=== PATIENT | male | born 1960 | race Caucasian/White ===

== ENCOUNTER 2016-09-13 17:15 | Emergency (ER) | payer BC, OTHER ==
[~2016-09-13] VITALS: Ht 182.9 cm; Wt 96.3 kg
[~2016-09-13 17:15] MED LIST: BENZ100C84; CHERATUSSIN AC
[2016-09-13 17:28] VITALS: TEMP 37.2; Ht 182.9 cm; Wt 96.3 kg
[2016-09-13] MEDS ORDERED: ACET-1256 PO (17:35)
[2016-09-13] MEDS ORDERED: ONDANSETRON INJ 2 MG/ML 2 ML VIAL IV STA (17:49)
[2016-09-13] MEDS ORDERED: KETOROLAC TROMETHAMINE 30 MG/ML VIAL IV STA (17:49)
[2016-09-13] MEDS ORDERED: SODIUM CHLORIDE 0.9% 1000ML 1,000 ML IV STA (17:49)
[2016-09-13] MEDS ORDERED: MoRPHine SULFATE 4 MG/ML 1 ML CARP\\VIAL IV PRN (18:00)
[2016-09-13 18:04] LABS: BASO % 0.1 %; BASO ABS # 0.02 K/uL (0-0.2); COMPLETE YES; EOS % 0.2 %; HEMATOCRIT 45.9 % (42-52); IG% 0.4 %; LYMPH % 6.9 %; LYMPH ABS # 1.09 K/uL (1.2-3.4); MEAN CELL VOLUME 92.4 fL (80-100); MEAN CORPUSCULAR HEMOGLOBIN 32.6 pg (25-34); MEAN CORPUSCULAR HGB CONC 35.3 g/dl (32-36); MEAN PLATELET VOLUME 9.3 fL (7.4-10.4); MONO % 5.5 %; NEUT % 86.9 %; PLATELET COUNT 261 K/uL (130-400); RED BLOOD COUNT 4.97 M/uL (4.7-6.1)
[2016-09-13 18:12] LABS: BUN/CREATININE RATIO 17.1 (10-20); CALCIUM 9.2 mg/dl (8.5-10.1); CREATININE 1.3 mg/dl (0.60-1.40); POTASSIUM 4.4 mmol/L (3.5-5.1)
[2016-09-13 18:24] LABS: URINE APPEARANCE CLEAR (CLEAR); URINE BILIRUBIN NEG (NEG); URINE COLOR YELLOW; URINE EPITHELIAL CELL AUTO 0-5 /lpf (0-5); URINE NITRITE NEG (NEG); UROBILINOGEN NEG (NEG); ZZUR CULT IF INDIC CLEAN CATCH NO
[2016-09-13 18:26] LABS: MANUAL MICROSCOPIC REQUIRED? NO; REVIEW REQ? NO
--- NOTE | 2016-09-13 18:29 | DIAGNOSTIC IMAGING REPORT ---
CT SCAN OF THE ABDOMEN AND PELVIS WITHOUT IV CONTRAST CLINICAL HISTORY: Right flank pain. COMPARISON STUDY: No priors. TECHNIQUE: CT scan of the abdomen and pelvis is performed from the lung bases to the proximal femora. Images are reviewed in the axial, sagittal, and coronal planes. IV contrast was not administered for this examination as per the referring clinician. Automated dose control exposure was utilized. CT DOSE: 1441.38 mGy.cm FINDINGS: Lung bases: The heart is normal in size and without pericardial effusion. The lung bases are clear. There is a tiny hiatal hernia. Liver: The unenhanced liver is normal in size, contour, and attenuation. There is no intrahepatic biliary ductal dilatation. Gallbladder: Unremarkable. Spleen: Normal in size and attenuation. Pancreas: Unremarkable. Adrenal glands: Unremarkable. Kidneys: The unenhanced kidneys are normal in size. There is a 6 mm obstructing calculus at the right ureteropelvic junction, best seen on axial image #196. This is located at the level of L3 and causes moderate right-sided hydronephrosis. There is associated right-sided perinephric stranding and fluid. No additional stones are identified in the right kidney. There are no left-sided renal calculi and there is no left-sided hydronephrosis. A 1.3 cm hyperdense lesion in the interpolar left kidney seen on image #150 is typical appearance for a hemorrhagic cyst. Small parapelvic cysts are noted on the left. Abdominal vasculature: The abdominal aorta is normal in course and caliber. Bowel: The small bowel and colon are normal in course and caliber. There is mild colonic diverticulosis without CT evidence of acute diverticulitis. The appendix is well-visualized and normal. Peritoneum: There is no intraperitoneal free air or abdominal ascites. Lymphadenopathy: None. Pelvic viscera: The bladder, prostate, and seminal vesicles are normal as imaged. Skeletal structures: No lytic or blastic lesions are seen. There is mild lumbosacral spondylosis. Degenerative change is also seen in the sacroiliac joints. IMPRESSION: 1. There is a 6 mm obstructing calculus at the right ureteropelvic junction which causes moderate right-sided hydronephrosis. 2. No additional calculi are identified in either kidney. 3. Mild colonic diverticulosis without CT evidence of acute diverticulitis. 4. Additional findings as above. Electronically signed by: Otf Ramirez M.D. 09/13/2016 6:28 PM Dictated Date/Time: 09/13/2016 6:22 PM
[2016-09-13] MEDS ORDERED: TAMS0.4C38 PO (19:25)
[2016-09-13] MEDS ORDERED: ONDA4TAB10 SL (19:25)
[2016-09-13] MEDS ORDERED: OXYC-57 PO (19:25)
--- NOTE | 2016-09-13 19:29 | EMERGENCY ROOM VISIT NOTE ---
History Report prepared by Betsy: Mary Trinidad Under the Supervision of: Dr. Jerardo Levy D.O. First contact with patient: 17:47 Chief Complaint: FLANK PAIN Stated Complaint: RIGHT SIDE PAIN History of Present Illness The patient is a 55 year old male who presents to the Emergency Room with complaints of persistent right sided abdominal pain that began around 1200 today. He currently rates his discomfort as a 8/10 in severity. The patient states that while at work today he thought he pulled a muscle when he developed his pain. He states that he tried Tylenol and heating pads without relief of his symptoms. The patient states that his pain never subsided so he came for further evaluation. He associates nausea and vomiting with his symptoms today. The patient states that his pain radiates to his right flank and down his right groin. He notes a history of kidney stones, stating that his pain today feels similar. The patient denies any history of abdominal surgeries. Source of History: patient Onset: 1200 today Position: abdomen (right) Symptom Intensity: 8/10 Timing: other (persistent) Associated Symptoms: + back pain, + nausea, + vomiting Note: Associated Symptoms: right groin pain Review of Systems See HPI for pertinent positives & negatives. A total of 10 systems reviewed and were otherwise negative. Past Medical & Surgical Medical Problems: (1) Kidney stones Family History Cancer Social History Smoking Status: Never Smoker Alcohol Use: occasionally Marital Status: Housing Status: lives with family Occupation Status: employed Current/Historical Medications Scheduled Ondasetron Odt (Zofran Odt), 4 MG SL Q6H Tamsulosin Hcl (Flomax), 0.4 MG PO HS Scheduled PRN Acetaminophen (Tylenol), 1,000 MG PO DIRECTED PRN for Pain Oxycodone/Acetaminophen 5MG/325MG (Percocet 5MG/325MG), 1 TAB PO Q6H PRN for Pain Allergies Coded Allergies: No Known Allergies (Unverified , 09/13/16) Physical Exam Vital Signs Date Time Temp Pulse Resp B/P Pulse Ox O2 Delivery O2 Flow Rate FiO2 09/13/16 19:52 70 18 166/70 98 09/13/16 19:08 74 20 162/104 96 Room Air 09/13/16 17:28 37.2 80 18 180/132 97 Room Air Physical Exam CONSTITUTIONAL/VITAL SIGNS: Reviewed / noted above. GENERAL: Non-toxic in appearance. INTEGUMENTARY: Warm, dry, and [place]. HEAD: Normocephalic. EYES: without scleral icterus or trauma. ENT/OROPHARYNX: clear and moist. LYMPHADENOPATHY/NECK: Is supple without lymphadenopathy or meningismus. RESPIRATORY: Lungs clear and equal. CARDIOVASCULAR: Regular rate and rhythm. GI/ABDOMEN: Soft and mild right lower quadrant abdominal tenderness. No organomegaly or pulsatile mass. No rebound or guarding. Normal bowel sounds. EXTREMITIES: Warm and well perfused. BACK: Mild right CVA tenderness. NEUROLOGICAL: Intact without focal deficits. PSYCHIATRIC: normal affect. MUSCULOSKELETAL: Normally developed with good muscle tone. Medical Decision & Procedures ER Provider Diagnostic Interpretation: CT results as stated below per my review and radiologist interpretation: CT SCAN OF THE ABDOMEN AND PELVIS WITHOUT IV CONTRAST CLINICAL HISTORY: Right flank pain. COMPARISON STUDY: No priors. TECHNIQUE: CT scan of the abdomen and pelvis is performed from the lung bases to the proximal femora. Images are reviewed in the axial, sagittal, and coronal planes. IV contrast was not administered for this examination as per the referring clinician. Automated dose control exposure was utilized. CT DOSE: 1441.38 mGy.cm FINDINGS: Lung bases: The heart is normal in size and without pericardial effusion. The lung bases are clear. There is a tiny hiatal hernia. Liver: The unenhanced liver is normal in size, contour, and attenuation. There is no intrahepatic biliary ductal dilatation. Gallbladder: Unremarkable. Spleen: Normal in size and attenuation. Pancreas: Unremarkable. Adrenal glands: Unremarkable. Kidneys: The unenhanced kidneys are normal in size. There is a 6 mm obstructing calculus at the right ureteropelvic junction, best seen on axial image #196. This is located at the level of L3 and causes moderate right-sided hydronephrosis. There is associated right-sided perinephric stranding and fluid. No additional stones are identified in the right kidney. There are no left-sided renal calculi and there is no left-sided hydronephrosis. A 1.3 cm hyperdense lesion in the interpolar left kidney seen on image #150 is typical appearance for a hemorrhagic cyst. Small parapelvic cysts are noted on the left. Abdominal vasculature: The abdominal aorta is normal in course and caliber. Bowel: The small bowel and colon are normal in course and caliber. There is mild colonic diverticulosis without CT evidence of acute diverticulitis. The appendix is well-visualized and normal. Peritoneum: There is no intraperitoneal free air or abdominal ascites. Lymphadenopathy: None. Pelvic viscera: The bladder, prostate, and seminal vesicles are normal as imaged. Skeletal structures: No lytic or blastic lesions are seen. There is mild lumbosacral spondylosis. Degenerative change is also seen in the sacroiliac joints. IMPRESSION: 1. There is a 6 mm obstructing calculus at the right ureteropelvic junction which causes moderate right-sided hydronephrosis. 2. No additional calculi are identified in either kidney. 3. Mild colonic diverticulosis without CT evidence of acute diverticulitis. 4. Additional findings as above. Electronically signed by: Otf Ramirez M.D. 09/13/2016 6:28 PM Dictated Date/Time: 09/13/2016 6:22 PM Laboratory Results 09/13/16 17:40 Red Blood Count 4.97, Mean Corpuscular Volume 92.4, Mean Corpuscular Hemoglobin 32.6, Mean Corpuscular Hemoglobin Concent 35.3, Mean Platelet Volume 9.3, Neutrophils (%) (Auto) 86.9, Lymphocytes (%) (Auto) 6.9, Monocytes (%) (Auto) 5.5, Eosinophils (%) (Auto) 0.2, Basophils (%) (Auto) 0.1, Neutrophils # (Auto) 13.63, Lymphocytes # (Auto) 1.09, Monocytes # (Auto) 0.87, Eosinophils # (Auto) 0.03, Basophils # (Auto) 0.02 09/13/16 17:40 Test 09/13/16 17:40 09/13/16 18:05 White Blood Count 15.70 K/uL (4.8-10.8) Red Blood Count 4.97 M/uL (4.7-6.1) Hemoglobin 16.2 g/dL (14.0-18.0) Hematocrit 45.9 % (42-52) Mean Corpuscular Volume 92.4 fL (80-100) Mean Corpuscular Hemoglobin 32.6 pg (25-34) Mean Corpuscular Hemoglobin Concent 35.3 g/dl (32-36) Platelet Count 261 K/uL (130-400) Mean Platelet Volume 9.3 fL (7.4-10.4) Neutrophils (%) (Auto) 86.9 % Lymphocytes (%) (Auto) 6.9 % Monocytes (%) (Auto) 5.5 % Eosinophils (%) (Auto) 0.2 % Basophils (%) (Auto) 0.1 % Neutrophils # (Auto) 13.63 K/uL (1.4-6.5) Lymphocytes # (Auto) 1.09 K/uL (1.2-3.4) Monocytes # (Auto) 0.87 K/uL (0.11-0.59) Eosinophils # (Auto) 0.03 K/uL (0-0.5) Basophils # (Auto) 0.02 K/uL (0-0.2) RDW Standard Deviation 42.2 fL (36.4-46.3) RDW Coefficient of Variation 12.5 % (11.5-14.5) Immature Granulocyte % (Auto) 0.4 % Immature Granulocyte # (Auto) 0.06 K/uL (0.00-0.02) Anion Gap 7.0 mmol/L (3-11) Est Creatinine Clear Calc Drug Dose 77.3 ml/min Estimated GFR () 71.2 Estimated GFR (Non- 61.4 BUN/Creatinine Ratio 17.1 (10-20) Calcium Level 9.2 mg/dl (8.5-10.1) Total Bilirubin 0.8 mg/dl (0.2-1) Direct Bilirubin 0.2 mg/dl (0-0.2) Aspartate Amino Transf (AST/SGOT) 22 U/L (15-37) Alanine Aminotransferase (ALT/SGPT) 37 U/L (12-78) Alkaline Phosphatase 70 U/L (45-117) Total Protein 7.6 gm/dl (6.4-8.2) Albumin 4.4 gm/dl (3.4-5.0) Lipase 111 U/L (73-393) Urine Color YELLOW Urine Appearance CLEAR (CLEAR) Urine pH 5.0 (4.5-7.5) Urine Specific [place] 1.020 (1.000-1.030) Urine Protein NEG (NEG) Urine Glucose (UA) NEG (NEG) Urine Ketones NEG (NEG) Urine Occult Blood 3+ (NEG) Urine Nitrite NEG (NEG) Urine Bilirubin NEG (NEG) Urine Urobilinogen NEG (NEG) Urine Leukocyte Esterase NEG (NEG) Urine WBC (Auto) 1-5 /hpf (0-5) Urine RBC (Auto) >30 /hpf (0-4) Urine Hyaline Casts (Auto) 0 /lpf (0-5) Urine Epithelial Cells (Auto) 0-5 /lpf (0-5) Urine Bacteria (Auto) NEG (NEG) Laboratory results as stated above per my review. Medications Administered Medications (Trade) Dose Ordered Sig/Magan Route Start Time Stop Time Status Last Admin Dose Admin Sodium Chloride (Nss 1000ml) 1,000 ml @ 999 mls/hr Q1H1M STAT IV 09/13/16 17:49 09/13/16 18:49 DC 09/13/16 17:58 999 MLS/HR Ondansetron HCl (Zofran Inj) 4 mg NOW STAT IV 09/13/16 17:49 09/13/16 17:50 DC 09/13/16 17:58 4 MG Ketorolac Tromethamine (Toradol Inj) 30 mg NOW STAT IV 09/13/16 17:49 09/13/16 17:50 DC 09/13/16 17:59 30 MG Morphine Sulfate (MoRPHine SULFATE INJ) 4 mg Q15M PRN IV 09/13/16 18:00 09/27/16 17:59 09/13/16 17:59 4 MG Oxycodone/ Acetaminophen (Percocet 5/ 325MG Home Pack) 1 homepack UD ONCE PO 09/13/16 19:30 09/13/16 19:31 DC 09/13/16 19:48 1 HOMEPACK Ondansetron HCl (ZOFRAN ODT 4MG Home Pack) 1 homepack UD ONCE PO 09/13/16 19:30 09/13/16 19:31 DC 09/13/16 19:48 1 HOMEPACK ED Course 1747: Previous medical records were reviewed. The patient was evaluated in room C6. A complete history and physical examination was performed. 1748: Ordered Toradol Inj 30 mg IV, Zofran Inj 4 mg IV, Sodium Chloride 1000 ml @ 999 mls/hr IV. 1800: Ordered Morphine Sulfate 4 mg IV. 1929: Ordered Ondansetron HCl 1 homepack PO, Oxycodone/Acetaminophen 1 homepack PO. 1931: I reevaluated the patient and he is resting comfortably. I discussed the exam findings with him and I discussed the treatment plan. He verbalized complete understanding and agreement. He is ready to go home. Medical Decision Differential considered: pancreatitis, hepatitis, or acute cholecystitis, AAA, UTI, pyelonephritis, kidney stones, appendicitis, diverticulitis, shingles, bowel obstruction mesenteric ischemia, intussusception,hernia, testicular torsion. This is a 55-year-old male who presents to the ED with a chief complaint of right sided abdominal and flank pain. The patient states that his symptoms started around noon. A CT scan of the abdomen and pelvis reveals a 6 mm right UPJ stone with moderate [place]. Urine reveals 3+ blood. White blood cell count was 15.7. BUN is 22 and creatinine is normal. The patient was treated with IV fluids as well as IV Zofran and IV pain medication (morphine). His symptoms were controlled. He was given Flomax by mouth. He was discharged with a strainer. He was told to follow-up with urology. Impression Primary Impression: Kidney stone Additional Impression: Renal colic on right side Scribe Attestation The scribe's documentation has been prepared under my direction and personally reviewed by me in its entirety. I confirm that the note above accurately reflects all work, treatment, procedures, and medical decision making performed by me. Departure Information Prescriptions Ondasetron Odt (ZOFRAN ODT) 4 Mg Tab 4 MG SL Q6H for Nausea, #10 TAB Prov: Jerardo Levy D.O. 09/13/16 Oxycodone/Acetaminophen 5MG/325MG (PERCOCET 5MG/325MG) Tab 1 TAB PO Q6H Y for Pain, #30 TAB Prov: Jerardo Levy D.O. 09/13/16 Tamsulosin Hcl (FLOMAX) 0.4 Mg Cap 0.4 MG PO HS for 10 Days, #10 CAP Prov: Jerardo Levy D.O. 09/13/16 Referrals No Doctor, Assigned (PCP) Erik Pineda M.D. Forms HOME CARE DOCUMENTATION FORM, IMPORTANT VISIT INFORMATION Patient Instructions Kidney Stone Urine, Kidney Stones Expectant Therapy, My [facility] Additional Instructions Strain urine for stone. Percocet as prescribed. No driving within 6 hours of use. Do not take additional Tylenol while taking Percocet. Zofran: Allow one tablet to dissolve under the tongue every 6 hours as needed for nausea or vomiting. Flomax as prescribed. Follow-up with urology. Call tomorrow for an appointment. Return for fevers, vomiting or worsening symptoms. Problem Qualifiers
[2016-09-13] MEDS ORDERED: ONDANSETRON HOME PACK 4MG OD TAB PO ONE (19:30)
[2016-09-13] MEDS ORDERED: PERCOCET HOME PACK PO ONE (19:30)
[2016-09-13 19:52] VITALS: BP 166/70; PULSE 70; O2SAT 98
== END 2016-09-13 19:53 | disposition home or self-care (01) ==
LOC: C.EDB 17:16 → C.EDC 19:53
DX: N20.0 Calculus of kidney (principal); N23 Unspecified renal colic; N13.2 Hydronephrosis with renal and ureteral calculous obstruction

== ENCOUNTER 2016-09-15 11:16 | Emergency (ER) | payer OTHER ==
[~2016-09-15] VITALS: Ht 182.9 cm; Wt 103.0 kg
[~2016-09-15 11:16] MED LIST changes: +ACET-1256 PO; -BENZ100C84; -CHERATUSSIN AC; +ONDA4TAB10 SL; +OXYC-57 PO; +TAMS0.4C38 PO
[2016-09-15 11:32] VITALS: Ht 182.9 cm; Wt 103.0 kg
[2016-09-15] MEDS ORDERED: MoRPHine SULFATE 4 MG/ML 1 ML CARP\\VIAL IV STA ×2 (11:34→12:47)
[2016-09-15] MEDS ORDERED: SODIUM CHLORIDE 0.9% 1000ML 1,000 ML IV STA (11:34)
[2016-09-15 11:56] LABS: BASO % 0.1 %; BASO ABS # 0.01 K/uL (0-0.2); COMPLETE YES; EOS % 0.2 %; HEMATOCRIT 42.7 % (42-52); IG% 0.4 %; LYMPH % 8.4 %; LYMPH ABS # 1.41 K/uL (1.2-3.4); MEAN CELL VOLUME 93.8 fL (80-100); MEAN CORPUSCULAR HEMOGLOBIN 32.3 pg (25-34); MEAN CORPUSCULAR HGB CONC 34.4 g/dl (32-36); MEAN PLATELET VOLUME 9.5 fL (7.4-10.4); MONO % 7.1 %; NEUT % 83.8 %; PLATELET COUNT 212 K/uL (130-400); RED BLOOD COUNT 4.55 M/uL (4.7-6.1); WHITE BLOOD COUNT 16.88 K/uL (4.8-10.8)
[2016-09-15 12:01] LABS: URINE APPEARANCE CLEAR (CLEAR); URINE BILIRUBIN NEG (NEG); URINE COLOR YELLOW; URINE EPITHELIAL CELL AUTO 0-5 /lpf (0-5); URINE NITRITE NEG (NEG); URINE SPECIFIC GRAVITY 1.011 (1.000-1.030); UROBILINOGEN NEG (NEG); ZZUR CULT IF INDIC CLEAN CATCH NO
[2016-09-15 12:06] LABS: ALB/GLOB RATIO 1.3 (0.9-2); BUN/CREATININE RATIO 9.7 (10-20); CREATININE 1.5 mg/dl (0.60-1.40); POTASSIUM 4.2 mmol/L (3.5-5.1)
[2016-09-15 12:07] LABS: MANUAL MICROSCOPIC REQUIRED? NO; REVIEW REQ? NO
--- NOTE | 2016-09-15 12:13 | EMERGENCY ROOM VISIT NOTE ---
History First contact with patient: 11:24 Chief Complaint: FLANK PAIN Stated Complaint: PAIN ON RIGHT SIDE History of Present Illness The patient is a 55 year old male who presents to the Emergency Room with complaints of persistent right flank pain. The patient was seen here 2 days ago and diagnosed with a right-sided kidney stone. He reports that his pain was well controlled at home until yesterday evening. He states that since then , he has been taking his oxycodone as prescribed but has persistent 8/10 right flank pain with radiation into the right groin. He has not had nausea/vomiting or urinary symptoms. The patient does report that he felt feverish last night, but did not take his temperature. The patient has a history of kidney stones. He states that they have passed on their own in the past and he has not had to see a urologist. Review of Systems A complete 10-point Review of Systems was discussed with the patient, with pertinent positives and negatives listed in the History of Present Illness. All remaining Review of Systems questions can be considered negative unless otherwise specified. Past Medical/Surgical History Medical Problems: (1) Kidney stones Family History Cancer Social History Smoking Status: Never Smoker Alcohol Use: occasionally Marital Status: Housing Status: lives with family Occupation Status: employed Current/Historical Medications No Active Prescriptions or Reported Meds Allergies Coded Allergies: No Known Allergies (Unverified , 09/13/16) Physical Exam Vital Signs Date Time Temp Pulse Resp B/P Pulse Ox O2 Delivery O2 Flow Rate FiO2 09/15/16 14:34 98 16 161/102 96 09/15/16 12:46 76 16 159/98 97 Room Air 09/15/16 11:32 36.8 80 16 168/107 98 Room Air Physical Exam VITALS: Vitals are noted on the nurse's note and reviewed by myself. Vital signs stable. GENERAL: This is a 55-year-old male, in no acute distress, nondiaphoretic, well- developed well-nourished. SKIN: Capillary reflex less than 2 seconds. HEENT: Normocephalic. PERRLA. EOMI. Nares patent. Mucous membranes moist. Neck is supple without nuchal rigidity. HEART: Regular rate and rhythm without murmurs gallops or rubs. LUNGS: Clear to auscultation bilaterally without wheezes, rales or rhonchi. ABDOMEN: Positive bowel sounds x 4. Soft, mild tenderness over the right lower quadrant. No guarding or rebound tenderness. MUSCULOSKELETAL: Right CVA tenderness. NEURO: Patient was alert and oriented to person place and time. 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 No significant ureteral or paraspinal calcifications. Several pelvic vascular calcifications. IMPRESSION: No evidence for a urinary tract calcification within limitations of overlying bowel content Laboratory Results 09/15/16 11:30 Red Blood Count 4.55, Mean Corpuscular Volume 93.8, Mean Corpuscular Hemoglobin 32.3, Mean Corpuscular Hemoglobin Concent 34.4, Mean Platelet Volume 9.5, Neutrophils (%) (Auto) 83.8, Lymphocytes (%) (Auto) 8.4, Monocytes (%) (Auto) 7.1, Eosinophils (%) (Auto) 0.2, Basophils (%) (Auto) 0.1, Neutrophils # (Auto) 14.16, Lymphocytes # (Auto) 1.41, Monocytes # (Auto) 1.20, Eosinophils # (Auto) 0.04, Basophils # (Auto) 0.01 09/15/16 11:30 Test 09/15/16 11:30 White Blood Count 16.88 K/uL (4.8-10.8) Red Blood Count 4.55 M/uL (4.7-6.1) Hemoglobin 14.7 g/dL (14.0-18.0) Hematocrit 42.7 % (42-52) Mean Corpuscular Volume 93.8 fL (80-100) Mean Corpuscular Hemoglobin 32.3 pg (25-34) Mean Corpuscular Hemoglobin Concent 34.4 g/dl (32-36) Platelet Count 212 K/uL (130-400) Mean Platelet Volume 9.5 fL (7.4-10.4) Neutrophils (%) (Auto) 83.8 % Lymphocytes (%) (Auto) 8.4 % Monocytes (%) (Auto) 7.1 % Eosinophils (%) (Auto) 0.2 % Basophils (%) (Auto) 0.1 % Neutrophils # (Auto) 14.16 K/uL (1.4-6.5) Lymphocytes # (Auto) 1.41 K/uL (1.2-3.4) Monocytes # (Auto) 1.20 K/uL (0.11-0.59) Eosinophils # (Auto) 0.04 K/uL (0-0.5) Basophils # (Auto) 0.01 K/uL (0-0.2) RDW Standard Deviation 42.6 fL (36.4-46.3) RDW Coefficient of Variation 12.5 % (11.5-14.5) Immature Granulocyte % (Auto) 0.4 % Immature Granulocyte # (Auto) 0.06 K/uL (0.00-0.02) Urine Color YELLOW Urine Appearance CLEAR (CLEAR) Urine pH 5.0 (4.5-7.5) Urine Specific [place] 1.011 (1.000-1.030) Urine Protein NEG (NEG) Urine Glucose (UA) NEG (NEG) Urine Ketones TRACE (NEG) Urine Occult Blood 2+ (NEG) Urine Nitrite NEG (NEG) Urine Bilirubin NEG (NEG) Urine Urobilinogen NEG (NEG) Urine Leukocyte Esterase NEG (NEG) Urine WBC (Auto) 1-5 /hpf (0-5) Urine RBC (Auto) 5-10 /hpf (0-4) Urine Hyaline Casts (Auto) 0 /lpf (0-5) Urine Epithelial Cells (Auto) 0-5 /lpf (0-5) Urine Bacteria (Auto) NEG (NEG) Anion Gap 6.0 mmol/L (3-11) Est Creatinine Clear Calc Drug Dose 69.1 ml/min Estimated GFR () 59.9 Estimated GFR (Non- 51.7 BUN/Creatinine Ratio 9.7 (10-20) Calcium Level 9.0 mg/dl (8.5-10.1) Total Bilirubin 1.5 mg/dl (0.2-1) Aspartate Amino Transf (AST/SGOT) 12 U/L (15-37) Alanine Aminotransferase (ALT/SGPT) 27 U/L (12-78) Alkaline Phosphatase 66 U/L (45-117) Total Protein 7.2 gm/dl (6.4-8.2) Albumin 4.0 gm/dl (3.4-5.0) Globulin 3.2 gm/dl (2.5-4.0) Albumin/Globulin Ratio 1.3 (0.9-2) Medications Administered Medications (Trade) Dose Ordered Sig/Magan Route Start Time Stop Time Status Last Admin Dose Admin Sodium Chloride (Nss 1000ml) 1,000 ml @ 999 mls/hr Q1H1M STAT IV 09/15/16 11:34 09/15/16 12:34 DC 09/15/16 11:38 999 MLS/HR Morphine Sulfate (MoRPHine SULFATE INJ) 4 mg NOW STAT IV 09/15/16 11:34 09/15/16 11:35 DC 09/15/16 11:42 4 MG Morphine Sulfate (MoRPHine SULFATE INJ) 4 mg NOW STAT IV 09/15/16 12:47 09/15/16 12:48 DC 09/15/16 12:54 4 MG Hydromorphone HCl (Dilaudid Inj) 0.5 mg NOW STAT IV 09/15/16 14:07 09/15/16 14:13 DC 09/15/16 14:19 0.5 MG Medical Decision Differential diagnosis includes renal calculus, infected stone, among others. The patient was evaluated as above. Labs were drawn and IV access was obtained. Imaging studies were performed and read by radiology as above. The patient was medicated with 4 mg morphine IV and 1 L normal saline solution. The patient did require an additional 4 mg morphine. The patient was reassessed multiple times during their stay in the emergency department and remained in stable condition. The patient is a 55-year-old male who presents today complaining of continued pain after being diagnosed with a right-sided kidney stone. Review of the patient's records shows that he had a CT scan showing a 6 mm stone at the right UPJ 2 days ago. Labs revealed a leukocytosis of 16.8, increased slightly since his visit 2 days ago. Creatinine is slightly elevated at 1.50. This has also increased from his previous visit, when it was 1.30. The patient is afebrile and there are no other signs of infection. Urinalysis showed blood and trace ketones, but no evidence of infection. KUB was performed and was not able to identify the stone. The patient has not been able to manage his pain well at home. For this reason, he will be admitted for evaluation. I initially spoke with the [facility] hospitalist, who recommended that I speak with urology to admit the patient. I spoke with Dr. Rebollar of [facility] urology, who stated he would consult on the patient, but the patient should be admitted through medicine. I again spoke with the [facility] hospitalist, Dr. Ward , who agreed to evaluate the patient for admission. Impression Primary Impression: Right ureteral calculus Departure Information Prescriptions No Active Prescriptions or Reported Meds Referrals No Doctor, Assigned (PCP) Patient Instructions My [facility]
--- NOTE | 2016-09-15 12:45 | DIAGNOSTIC IMAGING REPORT ---
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 No significant ureteral or paraspinal calcifications. Several pelvic vascular calcifications. IMPRESSION: No evidence for a urinary tract calcification within limitations of overlying bowel content Electronically signed by: Yobani Avila M.D. 09/15/2016 12:44 PM Dictated Date/Time: 09/15/2016 12:43 PM
[2016-09-15] MEDS ORDERED: HYDROmorphone INJ 0.5 MG/0.5 ML SYR IV STA (14:07)
--- NOTE | 2016-09-15 14:44 | History and Physical ---
History & Physical Date & Time of Service: Sep 15, 2016 at 14:36 Chief Complaint: Pain On Right Side Primary Care Physician: No Doctor, Assigned History of Present Illness Source: patient This patient is a pleasant 55-year-old male that presents the emergency department complaining of right sided abdominal pain and flank pain has gotten progressively worse over the last 2 days. The patient has a history of kidney stones, and says this is a very similar pain. He describes as a very bad dull ache. He was seen in the emergency department 2 days ago. A CAT scan was performed. This revealed a 6 mm stone at the UPJ. The patient was discharged home with oxycodone and Zofran. This is not controlling his pain. He felt slightly nauseous 2 days ago. He has not had any vomiting. Denies any fever or chills. Denies any changes in bowel movements. He denies any associated dysuria, hematuria or urinary frequency. The patient has never had a procedure for his kidney stones in the past. He was always able to pass them on his own. Past Medical/Surgical History Medical Problems: (1) Kidney stones Status: Resolved Family History Cancer Social History Smoking Status: Never Smoker Smokeless Tobacco Use: Yes Alcohol Use: socially Marital Status: Housing status: lives with family Occupational Status: employed Multi-Drug Resistant Organisms History of MDRO: No Allergies Coded Allergies: No Known Allergies (Unverified , 09/13/16) Home Medications Scheduled Ciprofloxacin Hcl (Cipro), 500 MG PO BID Scheduled PRN Phenazopyridine Hcl (Pyridium), 200 MG PO TID PRN for Bladder pain Review of Systems 10 system review performed and negative unless noted in HPI or below Physical Exam Vital Signs Date Time Temp Pulse Resp B/P Pulse Ox O2 Delivery O2 Flow Rate FiO2 09/15/16 12:46 76 16 159/98 97 Room Air 09/15/16 11:32 36.8 80 16 168/107 98 Room Air General Appearance: + moderate distress (in moderate discomfort) Head: normocephalic Eyes: EOMI ENT: + pertinent finding (oral mucosa somewhat dry) Neck: no JVD Respiratory/Chest: lungs clear Cardiovascular: regular rate, rhythm Abdomen/GI: normal bowel sounds, soft, + pertinent finding (tenderness to palpation noted in the right lower quadrant and suprapubic region positive right -sided CVA tenderness.) Extremities/Musculoskelatal: no calf tenderness, no pedal edema Neurologic/Psych: no motor/sensory deficits, oriented x 3 Skin: warm/dry Diagnostics Laboratory Results 09/15/16 11:30 Red Blood Count 4.55, Mean Corpuscular Volume 93.8, Mean Corpuscular Hemoglobin 32.3, Mean Corpuscular Hemoglobin Concent 34.4, Mean Platelet Volume 9.5, Neutrophils (%) (Auto) 83.8, Lymphocytes (%) (Auto) 8.4, Monocytes (%) (Auto) 7.1, Eosinophils (%) (Auto) 0.2, Basophils (%) (Auto) 0.1, Neutrophils # (Auto) 14.16, Lymphocytes # (Auto) 1.41, Monocytes # (Auto) 1.20, Eosinophils # (Auto) 0.04, Basophils # (Auto) 0.01 09/15/16 11:30 Test 09/15/16 11:30 White Blood Count 16.88 K/uL (4.8-10.8) Red Blood Count 4.55 M/uL (4.7-6.1) Hemoglobin 14.7 g/dL (14.0-18.0) Hematocrit 42.7 % (42-52) Mean Corpuscular Volume 93.8 fL (80-100) Mean Corpuscular Hemoglobin 32.3 pg (25-34) Mean Corpuscular Hemoglobin Concent 34.4 g/dl (32-36) Platelet Count 212 K/uL (130-400) Mean Platelet Volume 9.5 fL (7.4-10.4) Neutrophils (%) (Auto) 83.8 % Lymphocytes (%) (Auto) 8.4 % Monocytes (%) (Auto) 7.1 % Eosinophils (%) (Auto) 0.2 % Basophils (%) (Auto) 0.1 % Neutrophils # (Auto) 14.16 K/uL (1.4-6.5) Lymphocytes # (Auto) 1.41 K/uL (1.2-3.4) Monocytes # (Auto) 1.20 K/uL (0.11-0.59) Eosinophils # (Auto) 0.04 K/uL (0-0.5) Basophils # (Auto) 0.01 K/uL (0-0.2) RDW Standard Deviation 42.6 fL (36.4-46.3) RDW Coefficient of Variation 12.5 % (11.5-14.5) Immature Granulocyte % (Auto) 0.4 % Immature Granulocyte # (Auto) 0.06 K/uL (0.00-0.02) Urine Color YELLOW Urine Appearance CLEAR (CLEAR) Urine pH 5.0 (4.5-7.5) Urine Specific [place] 1.011 (1.000-1.030) Urine Protein NEG (NEG) Urine Glucose (UA) NEG (NEG) Urine Ketones TRACE (NEG) Urine Occult Blood 2+ (NEG) Urine Nitrite NEG (NEG) Urine Bilirubin NEG (NEG) Urine Urobilinogen NEG (NEG) Urine Leukocyte Esterase NEG (NEG) Urine WBC (Auto) 1-5 /hpf (0-5) Urine RBC (Auto) 5-10 /hpf (0-4) Urine Hyaline Casts (Auto) 0 /lpf (0-5) Urine Epithelial Cells (Auto) 0-5 /lpf (0-5) Urine Bacteria (Auto) NEG (NEG) Anion Gap 6.0 mmol/L (3-11) Est Creatinine Clear Calc Drug Dose 69.1 ml/min Estimated GFR () 59.9 Estimated GFR (Non- 51.7 BUN/Creatinine Ratio 9.7 (10-20) Calcium Level 9.0 mg/dl (8.5-10.1) Total Bilirubin 1.5 mg/dl (0.2-1) Aspartate Amino Transf (AST/SGOT) 12 U/L (15-37) Alanine Aminotransferase (ALT/SGPT) 27 U/L (12-78) Alkaline Phosphatase 66 U/L (45-117) Total Protein 7.2 gm/dl (6.4-8.2) Albumin 4.0 gm/dl (3.4-5.0) Globulin 3.2 gm/dl (2.5-4.0) Albumin/Globulin Ratio 1.3 (0.9-2) Results Past 24 Hours Test 09/15/16 11:30 Range/Units White Blood Count 16.88 4.8-10.8 K/uL Red Blood Count 4.55 4.7-6.1 M/uL Hemoglobin 14.7 14.0-18.0 g/dL Hematocrit 42.7 42-52 % Mean Corpuscular Volume 93.8 80-100 fL Mean Corpuscular Hemoglobin 32.3 25-34 pg Mean Corpuscular Hemoglobin Concent 34.4 32-36 g/dl Platelet Count 212 130-400 K/uL Mean Platelet Volume 9.5 7.4-10.4 fL Neutrophils (%) (Auto) 83.8 % Lymphocytes (%) (Auto) 8.4 % Monocytes (%) (Auto) 7.1 % Eosinophils (%) (Auto) 0.2 % Basophils (%) (Auto) 0.1 % Neutrophils # (Auto) 14.16 1.4-6.5 K/uL Lymphocytes # (Auto) 1.41 1.2-3.4 K/uL Monocytes # (Auto) 1.20 0.11-0.59 K/uL Eosinophils # (Auto) 0.04 0-0.5 K/uL Basophils # (Auto) 0.01 0-0.2 K/uL RDW Standard Deviation 42.6 36.4-46.3 fL RDW Coefficient of Variation 12.5 11.5-14.5 % Immature Granulocyte % (Auto) 0.4 % Immature Granulocyte # (Auto) 0.06 0.00-0.02 K/uL Urine Color YELLOW Urine Appearance CLEAR CLEAR Urine pH 5.0 4.5-7.5 Urine Specific [place] 1.011 1.000-1.030 Urine Protein NEG NEG Urine Glucose (UA) NEG NEG Urine Ketones TRACE NEG Urine Occult Blood 2+ NEG Urine Nitrite NEG NEG Urine Bilirubin NEG NEG Urine Urobilinogen NEG NEG Urine Leukocyte Esterase NEG NEG Urine WBC (Auto) 1-5 0-5 /hpf Urine RBC (Auto) 5-10 0-4 /hpf Urine Hyaline Casts (Auto) 0 0-5 /lpf Urine Epithelial Cells (Auto) 0-5 0-5 /lpf Urine Bacteria (Auto) NEG NEG Sodium Level 138 136-145 mmol/L Potassium Level 4.2 3.5-5.1 mmol/L Chloride Level 103 98-107 mmol/L Carbon Dioxide Level 29 21-32 mmol/L Anion Gap 6.0 3-11 mmol/L Blood Urea Nitrogen 15 7-18 mg/dl Creatinine 1.50 0.60-1.40 mg/dl Est Creatinine Clear Calc Drug Dose 69.1 ml/min Estimated GFR () 59.9 Estimated GFR (Non- 51.7 BUN/Creatinine Ratio 9.7 10-20 Random Glucose 124 70-99 mg/dl Calcium Level 9.0 8.5-10.1 mg/dl Total Bilirubin 1.5 0.2-1 mg/dl Aspartate Amino Transf (AST/SGOT) 12 15-37 U/L Alanine Aminotransferase (ALT/SGPT) 27 12-78 U/L Alkaline Phosphatase 66 45-117 U/L Total Protein 7.2 6.4-8.2 gm/dl Albumin 4.0 3.4-5.0 gm/dl Globulin 3.2 2.5-4.0 gm/dl Albumin/Globulin Ratio 1.3 0.9-2 Diagnostic Radiology Patient: DEN IBANEZ Address1: [address] [facility] Rec: [id number] Address2: [facility] [address] ID: [id number] [facility] Zip: [place] [address] Date: 1960 Sex: M Room/Bed: Ref Phy: No Doctor, Assigned SC: OBINNA Att Phy: Report #: [id number] Cris Phy: No Doctor, Assigned Test: APSTONE Admit Phy: Excelsior Cutter: MIGDALIA Interpreting Phy: Otf Ramirez M.D. Diagnosis: RIGHT SIDE PAIN Ordering Phy: Jerardo Levy D.O. Service Date: 09/13/16 Admit Date: 09/13/16 MNE: [id number] CONF: DICTATED BY: Otf Ramirez M.D.]] CC: Jerardo Levy D.O. No Doctor, Assigned Endcc: [~ rep ct add3]] CT SCAN OF THE ABDOMEN AND PELVIS WITHOUT IV CONTRAST CLINICAL HISTORY: Right flank pain. COMPARISON STUDY: No priors. TECHNIQUE: CT scan of the abdomen and pelvis is performed from the lung bases to the proximal femora. Images are reviewed in the axial, sagittal, and coronal planes. IV contrast was not administered for this examination as per the referring clinician. Automated dose control exposure was utilized. CT DOSE: 1441.38 mGy.cm FINDINGS: Lung bases: The heart is normal in size and without pericardial effusion. The lung bases are clear. There is a tiny hiatal hernia. Liver: The unenhanced liver is normal in size, contour, and attenuation. There is no intrahepatic biliary ductal dilatation. Gallbladder: Unremarkable. Spleen: Normal in size and attenuation. Pancreas: Unremarkable. Adrenal glands: Unremarkable. Kidneys: The unenhanced kidneys are normal in size. There is a 6 mm obstructing calculus at the right ureteropelvic junction, best seen on axial image #196. This is located at the level of L3 and causes moderate right-sided hydronephrosis. There is associated right-sided perinephric stranding and fluid. No additional stones are identified in the right kidney. There are no left-sided renal calculi and there is no left-sided hydronephrosis. A 1.3 cm hyperdense lesion in the interpolar left kidney seen on image #150 is typical appearance for a hemorrhagic cyst. Small parapelvic cysts are noted on the left. Abdominal vasculature: The abdominal aorta is normal in course and caliber. Bowel: The small bowel and colon are normal in course and caliber. There is mild colonic diverticulosis without CT evidence of acute diverticulitis. The appendix is well-visualized and normal. Peritoneum: There is no intraperitoneal free air or abdominal ascites. Lymphadenopathy: None. Pelvic viscera: The bladder, prostate, and seminal vesicles are normal as imaged. Skeletal structures: No lytic or blastic lesions are seen. There is mild lumbosacral spondylosis. Degenerative change is also seen in the sacroiliac joints. IMPRESSION: 1. There is a 6 mm obstructing calculus at the right ureteropelvic junction which causes moderate right-sided hydronephrosis. 2. No additional calculi are identified in either kidney. 3. Mild colonic diverticulosis without CT evidence of acute diverticulitis. 4. Additional findings as above. Electronically signed by: Otf Ramirez M.D. 09/13/2016 6:28 PM Dictated Date/Time: 09/13/2016 6:22 PM The status of this report is Signed. Draft = Not yet reviewed or approved by Radiologist. Patient Name: DEN IBANEZ Unit Number: [id number] Dictated: 09/15/16 1243 Transcribed: 09/15/16 1243 MS Printed Date/Time: [~ rep prt dt]/[~ rep prt tm] [~ rep ct labl] - [~ rep ct ivnm] [facility] [place] [address] Dictated: 09/15/16 1243 Transcribed: 09/15/16 1243 MS Printed Date/Time: [~ rep prt dt]/[~ rep prt tm] [~ rep ct labl] - [~ rep ct ivnm] Patient: DEN IBANEZ Address1: [address] [facility] Rec: [id number] Address2: [facility] [address] ID: [id number] [facility] Zip: [place] [address] Date: 1960 Sex: M Room/Bed: Ref Phy: No Doctor, Assigned SC: SEAN Att Phy: Report #: [id number] Cris Phy: No Doctor, Assigned Test: KUB Admit Phy: Excelsior Cutter: ZANE Interpreting Phy: Yobani Avila M.D. 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 No significant ureteral or paraspinal calcifications. Several pelvic vascular calcifications. IMPRESSION: No evidence for a urinary tract calcification within limitations of overlying bowel content Electronically signed by: Yobani Avila M.D. 09/15/2016 12:44 PM Dictated Date/Time: 09/15/2016 12:43 PM The status of this report is Signed. Draft = Not yet reviewed or approved by Radiologist. Signed = Reviewed and approved by Radiologist. <AttendingPhy></AttendingPhy> <FamilyPhy>No Doctor, Assigned</FamilyPhy> < PrimaryPhy>No Doctor, Assigned</PrimaryPhy> <UnitNumber>[id number]</UnitNumber> <VisitNumber>[id number]</VisitNumber> <PatientName>DEN IBANEZ</ PatientName> <DateOfBirth>1960</DateOfBirth> <Location>[facility]</Location> < ServiceDate>09/15/16</ServiceDate> <MNE>ESINDI</MNE> <OrderingPhy>Do Middleton PA-C</OrderingPhy> <OrderingPhyMNE>f rep ord dr carrera</OrderingPhyMNE> < DictatingPhyMNE>f rep dict dr carrera</DictatingPhyMNE> <CCListMNE>f rep ct tyresee</ CCListMNE> <AdmittingPhyMNE>f pt admit dr carrera</AdmittingPhyMNE> <AttendingPhyMNE >f pt attend dr carrera</AttendingPhyMNE> <ConsultingPhyMNE>f pt consult dr carrera</ConsultingPhyMNE> <FamilyPhyMNE>f pt fam dr carrera</FamilyPhyMNE> <OtherPhyMNE>f pt other dr carrera</OtherPhyMNE> < PrimaryPhyMNE>f pt prim care dr carrera</PrimaryPhyMNE> <ReferringPhyMNE>f pt referring dr carrera</ReferringPhyMNE> Impression Assessment and Plan 55-year-old male returns the emergency department with uncontrolled right flank and right lower abdominal pain with a known 6 mm kidney stone at the UPJ. Now mild elevation in creatinine Obstructing 6 mm stone with associated moderate hydronephrosis and now acute renal insufficiency -Observe on medical floor -Dilaudid 1 mg IV every 3 hours as needed for pain -Flomax 0.4 mg daily -NPO except for meds for now -Urology consult -Continue IVF -follow PRP, CBC Mild hypertension-patient does not have a formal diagnosis of hypertension. BP elevation is likely secondary to pain. -Follow up with PCP for recheck DVT prophylaxis -Tera, MINIs -We will hold off on chemical means of prophylaxis for possible OR procedure CODE STATUS -LEVEL I FULL CODE DISPO -d/c home. Will need to be set up with new PCP Level of Care Med/Surg Resuscitation Status FULL RESUSCITATION VTE Prophylaxis VTE Risk Assessment Done? Y/N: Yes Risk Level: Low Given or contraindicated: T.E.D. 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 Discussed with GABRIEL Zepeda and agree with findings and plan as documented in the note. Any exceptions or clarifications are listed here: Patient here with intractable right flank pain from known 6 mm kidney stone at the right UPJ diagnosed 2 days ago. He was sent home pain medications but returned for intractable pain. He is afebrile, no evidence of UTI on admission. He is otherwise quite healthy. Vital signs reviewed, mildly hypertensive likely secondary to pain No acute distress, alert awake oriented 3 Anicteric sclera Regular rate and rhythm, no murmurs, gallops or rubs Lungs clear to auscultation bilaterally breathing nonlabored Abdomen positive bowel sounds soft positive tenderness palpation right lower quadrant and right CVA tenderness exquisite, no guarding or rebound tenderness Extremities no edema, 2+ dorsalis pedis pulses Skin no rashes 55-year-old male here with a right-sided ureterolithiasis with hydronephrosis and mild renal insufficiency with a creatinine of 1.5 up from 1.3. -Urology ended up taking him to cystoscopy with stent placement shortly after admission with preoperative Cipro and then discharged him to home right after the procedure. He apparently did well with the procedure and was sent home with a prescription for Pyridium and Cipro. -He should follow up with his PCP within one week and repeat his renal function labs at that time -He should follow up with urology within 1-2 weeks as well for lithotripsy Documented By: Kristel Ward Constitutional: acknowledges: no symptoms reported
[2016-09-15] MEDS ORDERED: ONDANSETRON INJ 2 MG/ML 2 ML VIAL IV PRN ×2 (14:45→16:30)
[2016-09-15] MEDS ORDERED: ACETAMINOPHEN 325 MG TAB PO PRN (14:45)
[2016-09-15] MEDS ORDERED: HYDROmorphone INJ 1 MG/ML SYR IV PRN (14:45)
[2016-09-15] MEDS ORDERED: IV FLUIDS COMPLETED PRN (15:00)
[2016-09-15] MEDS ORDERED: SODIUM CHLORIDE 0.9% 1000ML 1,000 ML IV SCH (16:00)
[2016-09-15] MEDS ORDERED: CIPROFLOXACIN 400MG / 200ML D5W IV SCH (16:00)
[2016-09-15 16:09] VITALS: O2SAT 95
--- NOTE | 2016-09-15 16:11 | Urology Consultation ---
History General Date of Service: Sep 15, 2016. Chief Complaint: right flank pain Primary Care Physician: No Doctor, Assigned Pt seen a urologist before?: No History of Present Illness 55 yo male presents to [facility] for the 2nd time in 2 days with c/o right flank pain. CT scan on 09-13 showed a 6mm right UPJ stone. The pt was sent home for a trial of passage, and returned to the ED for worsening pain. KUB today shows the stone persists. The pt reports pain 6-7/10 this afternoon with pain medication. +n/v 2 days ago. Denies f/c, dysuria, or hematuria today. He is currently afebrile. White count is16.88. Cr noted to be 1.5. He does have a previous hx of passing stones ~15 years ago. He has never seen a urologist for this issue. He also notes his was recently discharged from [facility] for sepsis and pneumonia and son was admitted to the [facility] recently. He is anxious to go home. Imaging Imaging: KUB Laboratory Last 24 Hours Test 09/15/16 11:30 White Blood Count 16.88 K/uL Red Blood Count 4.55 M/uL Hemoglobin 14.7 g/dL Hematocrit 42.7 % Mean Corpuscular Volume 93.8 fL Mean Corpuscular Hemoglobin 32.3 pg Mean Corpuscular Hemoglobin Concent 34.4 g/dl Platelet Count 212 K/uL Mean Platelet Volume 9.5 fL Neutrophils (%) (Auto) 83.8 % Lymphocytes (%) (Auto) 8.4 % Monocytes (%) (Auto) 7.1 % Eosinophils (%) (Auto) 0.2 % Basophils (%) (Auto) 0.1 % Neutrophils # (Auto) 14.16 K/uL Lymphocytes # (Auto) 1.41 K/uL Monocytes # (Auto) 1.20 K/uL Eosinophils # (Auto) 0.04 K/uL Basophils # (Auto) 0.01 K/uL RDW Standard Deviation 42.6 fL RDW Coefficient of Variation 12.5 % Immature Granulocyte % (Auto) 0.4 % Immature Granulocyte # (Auto) 0.06 K/uL Urine Color YELLOW Urine Appearance CLEAR Urine pH 5.0 Urine Specific [place] 1.011 Urine Protein NEG Urine Glucose (UA) NEG Urine Ketones TRACE Urine Occult Blood 2+ Urine Nitrite NEG Urine Bilirubin NEG Urine Urobilinogen NEG Urine Leukocyte Esterase NEG Urine WBC (Auto) 1-5 /hpf Urine RBC (Auto) 5-10 /hpf Urine Hyaline Casts (Auto) 0 /lpf Urine Epithelial Cells (Auto) 0-5 /lpf Urine Bacteria (Auto) NEG Sodium Level 138 mmol/L Potassium Level 4.2 mmol/L Chloride Level 103 mmol/L Carbon Dioxide Level 29 mmol/L Anion Gap 6.0 mmol/L Blood Urea Nitrogen 15 mg/dl Creatinine 1.50 mg/dl Est Creatinine Clear Calc Drug Dose 69.1 ml/min Estimated GFR () 59.9 Estimated GFR (Non- 51.7 BUN/Creatinine Ratio 9.7 Random Glucose 124 mg/dl Calcium Level 9.0 mg/dl Total Bilirubin 1.5 mg/dl Aspartate Amino Transf (AST/SGOT) 12 U/L Alanine Aminotransferase (ALT/SGPT) 27 U/L Alkaline Phosphatase 66 U/L Total Protein 7.2 gm/dl Albumin 4.0 gm/dl Globulin 3.2 gm/dl Albumin/Globulin Ratio 1.3 Problem List Medical Problems: (1) Kidney stone Status: Acute (2) Renal colic on right side Status: Acute (3) Right ureteral calculus Status: Acute Past History kidney stones Past Surgical History: tonsillectomy, other (ear surgery for tube placement) Family History Cancer Social History Hx Tobacco Use In Past Year?: Yes Smoking: non-smoker Alcohol: socially Marital status: Housing status: lives with family Occupation status: employed History of MDRO No Allergies Coded Allergies: No Known Allergies (Unverified , 09/13/16) Medications Home Medications: Home Meds and Scripts Medications Dose Route/Sig Max Daily Dose Days Date Category No Active Prescriptions or Reported Medications Rx Inpatient Medications: Current Inpatient Medications Medications (Trade) Dose Ordered Sig/Magan Route Start Time Stop Time Status Last Admin Dose Admin Acetaminophen (Tylenol Tab) 650 mg Q4H PRN PO 09/15/16 14:45 10/15/16 14:44 Ondansetron HCl 4 mg 4 mg Q6H PRN IV 09/15/16 14:45 10/15/16 14:44 Sodium Chloride (Nss 1000ml) 1,000 ml @ 125 mls/hr Q8H IV 09/15/16 16:00 10/15/16 15:59 Hydromorphone HCl (Dilaudid Inj) 1 mg Q2H PRN IV 09/15/16 14:45 09/29/16 14:44 Miscellaneous (Iv Fluids Completed) 1 ea PRN PRN N/A 09/15/16 15:00 09/15/17 14:59 Ciprofloxacin/ Dextrose (Cipro / D5w) 400 mg TODAY@1600 IV 09/15/16 16:00 09/15/16 18:00 Review of Systems Review of Systems Constitutional: No chills, No fever Eyes: No double vision Endocrine: No excessive thirst Gastrointestinal: + abdominal pain (RLQ), No nausea, No vomiting Cardiovascular: No chest pain Respiratory: No shortness of breath Skin: No rash Musculoskeletal: + back pain (right low back ) Male : No blood in urine, No painful urination Physical Exam Vital Signs: Vital Signs Past 12 Hours Date Time Temp Pulse Resp B/P Pulse Ox O2 Delivery O2 Flow Rate FiO2 09/15/16 14:34 98 16 161/102 96 09/15/16 12:46 76 16 159/98 97 Room Air 09/15/16 11:32 36.8 80 16 168/107 98 Room Air Physical Exam: General Appearance: no apparent distress Eyes: bilateral eyes normal inspection ENT: hearing grossly normal Neck: no JVD Respiratory/Chest: no respiratory distress, no accessory muscle use Cardiovascular: no JVD Extremities: normal inspection Neurologic/Psychiatric: alert, normal mood/affect, oriented x 3 Skin: normal color Assessment & Plan Assessment & Plan Treatment Planned: cystoscopy w/ stent A/P: Right ureteral stone Will plan to go to the OR today for cysto and right ureteral stent placement for intractable renal colic. Risks and benefits of the procedure discussed with the pt. All questions answered. Pt agrees to the procedure at this time. Consent obtained. Pre-op Cipro ordered. Pre-op EKG obtained as well. Thanks for the consult. Will continue to follow along with primary service at this time.
[2016-09-15] MEDS ORDERED: FENTANYL CITRATE INJ 50 MCG/1 ML 2 ML VIAL ONE (16:25)
[2016-09-15] MEDS ORDERED: MIDAZOLAM HCL 1 MG/ML 2ML VIAL ONE (16:26)
[2016-09-15] MEDS ORDERED: MEPERIDINE HCL 25 MG/ML CARP IV PRN (16:30)
[2016-09-15] MEDS ORDERED: ATROPINE SULFATE 0.1 MG/ML 5ML SYR IV PRN (16:30)
[2016-09-15] MEDS ORDERED: LABETALOL HCL IV 5 MG/ML 20ML IV PRN (16:30)
[2016-09-15] MEDS ORDERED: FLUMAZENIL 0.1 MG/1 ML 10 ML VIAL IV PRN (16:30)
[2016-09-15] MEDS ORDERED: HYDROmorphone INJ 2 MG/ML SYR/VIAL IV PRN (16:30)
[2016-09-15] MEDS ORDERED: PHENYLEPHRINE 100MCG/ML 5ML SYR IV PRN (16:30)
[2016-09-15] MEDS ORDERED: EpHEDrine SULFATE INJ 50 MG/ML AMP IV PRN (16:30)
[2016-09-15] MEDS ORDERED: FENTANYL CITRATE INJ 50 MCG/1 ML 2 ML VIAL IV PRN (16:30)
[2016-09-15] MEDS ORDERED: NALOXONE HCL 0.4 MG/1 ML VIAL/CARP IV PRN (16:30)
[2016-09-15] MEDS ORDERED: CONRAY 30% 150ML BOTTLE ONE (16:42)
[2016-09-15] MEDS ORDERED: CIPR-255 PO (17:03)
[2016-09-15] MEDS ORDERED: PHEN-775 PO (17:03)
[2016-09-15] MEDS ORDERED: PROPOFOL IV EMULSION 10 MG/ML 20 ML VIAL IV ONE (17:05)
--- NOTE | 2016-09-15 17:05 | Discharge Instructions ---
Discharge Instructions Date of Service Sep 15, 2016. Admission Reason for Admission: Pain On Right Side Discharge Discharge Diagnosis / Problem: R ureteral stone s/p stent placement Discharge Goals Goal(s): Decrease discomfort, Improve function, Improve disease control, Therapeutic intervention Activity Recommendations Activity Limitations: per Instructions/Follow-up section Lifting Limitations: gradually increase as tolerated Exercise/Sports Limitations: rest today May Resume Sexual Activity: after two weeks Shower/Bathe: no limitations Driving or Machine Use: resume 1 day after discharge . Instructions / Follow-Up Instructions / Follow-Up Call [phone] to arrange for lithotripsy of your right kidney stone. Blood in the urine is expected. Use your pain medication as needed, Pyridium for burning with urination or bladder pain. Discharge Diet Recommended Diet: Regular Diet (good fluid intake) Procedures Procedures Performed: cystoscopy, placement of right ureteral stent, right retrograde pyelogram Pending Studies Studies pending at discharge: no Medical Emergencies . Who to Call and When: Medical Emergencies: If at any time you feel your situation is an emergency, please call 911 immediately. . Non-Emergent Contact Non-Emergency issues call your: Urologist Call Non-Emergent contact if: you have a fever, temperature is above 101, your pain is not controlled, your pain is worsening, your pain is unusual for you, your pain is concerning you, you have any medication questions . . "Provider Documentation" section prepared by Benjie Cassidy. VTE Core Measure Inpt VTE Proph given/why not?: Samantha Rosen, MINI's
--- NOTE | 2016-09-15 17:07 | [facility] Post Operative Brief Note ---
Immediate Operative Summary Operative Date Sep 15, 2016. Pre-Operative Diagnosis Intractable renal colic with right ureteral stone Post-Operative Diagnosis SAME Procedure(s) Performed Cystoscopy, placement of right ureteral stent, right retrograde pyelogram Surgeon Dr. Aaron Cassidy Incoming Inspector Surgeon(s) NA Estimated Blood Loss 5ml Findings Narrow distal ureter causing difficulties with placement of 6 fr ureteral stent , 5 fr stent in good position on fluoro. Specimens no specimen per surgeon Drains 5 fr multilength R ureteral stent Anesthesia MAC Complication(s) None Disposition Recovery Room / PACU
[2016-09-15] MEDS ORDERED: PHENAZOPYRIDINE HCL 200 MG TAB PO PRN (17:15)
[2016-09-15] MEDS ORDERED: OXYCODONE/ACETAMINOPHEN 5-325 TAB PO PRN (17:15)
--- NOTE | 2016-09-15 17:21 | DIAGNOSTIC IMAGING REPORT ---
FLUOROSCOPIC IMAGES FROM CYSTOSCOPY AND STENT PLACEMENT CLINICAL HISTORY: Calculus. COMPARISON STUDY: KUB performed earlier today. Fluoroscopy time: 37 seconds. FINDINGS: 4 fluoroscopic images from a right retrograde exam were obtained. These images demonstrate cannulation of the right ureter. A filling defect within the proximal right ureter could reflect the calculus shown on CT. Subsequent image demonstrates placement of a stent. The proximal aspect of the stent is within the right renal pelvis. The distal aspect was not imaged on this exam. IMPRESSION: Fluoroscopic images from right retrograde exam with right ureteral stent insertion. Electronically signed by: Navjot Miranda M.D. 09/15/2016 5:19 PM Dictated Date/Time: 09/15/2016 5:18 PM
--- NOTE | 2016-09-15 17:24 | Anesthesiology Progress Note ---
Anesthesia Post Op Note Date & Time Sep 15, 2016 at 17:24 Vital Signs Pain Intensity: 0 Vital Signs Past 12 Hours Date Time Temp Pulse Resp B/P Pulse Ox O2 Delivery O2 Flow Rate FiO2 09/15/16 17:15 37 91 16 128/97 99 Room Air 09/15/16 17:05 37 86 16 135/93 100 Mask 10 09/15/16 16:31 37.7 83 16 159/104 97 Room Air 09/15/16 16:09 86 20 157/95 95 Room Air 09/15/16 14:34 98 16 161/102 96 09/15/16 12:46 76 16 159/98 97 Room Air 09/15/16 11:32 36.8 80 16 168/107 98 Room Air Notes Mental Status: alert / awake / arousable, participated in evaluation Pt Amnestic to Procedure: Yes Nausea / Vomiting: adequately controlled Pain: adequately controlled Airway Patency, RR, SpO2: stable & adequate BP & HR: stable & adequate Hydration State: stable & adequate Anesthetic Complications: no major complications apparent
[2016-09-15 17:30] VITALS: BP 143/89; PULSE 89; TEMP 37.4; O2SAT 97
[2016-09-15 18:00] VITALS: BP 142/95; PULSE 89; O2SAT 98
[2016-09-15 18:22] VITALS: BP 159/91; PULSE 105; TEMP 37.2; O2SAT 99
--- NOTE | 2016-09-15 18:23 | OPERATIVE REPORT ---
DATE OF OPERATION: 09/15/2016 PREOPERATIVE DIAGNOSIS: Right proximal 6-mm ureteral stone with intractable colic. POSTOPERATIVE DIAGNOSIS: Same. PROCEDURES: Cystoscopy, right retrograde pyelography, and right ureteral stent placement. SURGEON: Dr. Benjie Cassidy. WASH DRILLER: None. ANESTHESIA: Monitored anesthesia care with sedation. COMPLICATIONS: None. FINDINGS: Narrow ureter not allowing for passage of a 6-[place] stent distally, 5-[place] stent able to be passed with a redundant coil within the bladder and stent coiled within the renal pelvis. SPECIMENS SENT TO PATHOLOGY: None. ESTIMATED BLOOD LOSS: Minimal. COMPLICATIONS: None. BRIEF HISTORY: Mr. Xie is a pleasant 55-year-old male who presented to the Emergency Room for second time in several days due to intractable right renal colic. CT scan confirms the presence of a right proximal ureteral stone. He has been seen in consultation by ourselves and felt to be a candidate for acute stent decompression. Risks and benefits of intervention have been discussed with patient, who vocalizes good understanding of the treatment plan. Please see consultation for further details. Plan is for patient to be discharged from the PACU area after completion of procedure. Intravenous ciprofloxacin provided for antibiotic coverage and SCDs used for DVT prophylaxis. DESCRIPTION OF PROCEDURE: The patient was properly identified and was brought to the operative suite after identification of appropriate consent on the chart, monitored anesthesia care with sedation was initiated and the patient was prepped and draped in standard fashion for this procedure. realtime captioner-out procedure was followed. A 22-[place] rigid cystoscope was passed into the bladder under direct visualization and a normal urethra was appreciated with a slightly elevated bladder neck and minimal prostate hypertrophy. Bladder was surveyed in its entirety and noted to be free of lesions, calculi or mucosal changes. Ureteral orifices were in the normal anatomic location bilaterally. Minimal trabeculation was present. Right-sided ureteral orifice was cannulated using an open-ended catheter and gentle retrograde pyelography was performed. Stone was felt to be in the right upper quadrant and retropulsed to the level of the kidney. A normal caliber ureter distally without significant hydroureteronephrosis was appreciated. A sensor tip wire was able to be advanced up to the level of the right renal pelvis without difficulties or resistance. Cloudy urine with some debris was present within the right kidney. Attempts at passing a 6-[place] stent with resistance in the distal ureter not allowing for easy passage. This was therefore removed and replaced with a 5-[place] multilength stent, which was able to be advanced up to the level of the right renal pelvis without significant resistance or obstruction. Full coil was present within the bladder and stent was present within the kidney on fluoroscopic examination. Hydronephrotic drip was appreciated. Bladder was drained, the cystoscope was removed, anesthesia was reversed and the patient was transferred to recovery room in stable condition. FOLLOWUP CARE: The patient will be discharged home with a prescription for ciprofloxacin and Pyridium. He has pain medication from his recent ER visit. We will arrange for outpatient appointment for lithotripsy of his residual right renal stone. The patient is instructed to contact our service should he note any fevers, chills, nausea, vomiting or other significant difficulties in the postoperative period. I attest to the content of the Intraoperative Record and any orders documented therein. Any exceptio ns are noted below.
== END 2016-09-15 18:21 | disposition home or self-care (01) ==
LOC: CANRESERV → ENRESERVTM → ENRESERVDT → C.EDB 11:17 → C.EDA 18:21 → CANBEDREQ 18:26
DX: N13.2 Hydronephrosis with renal and ureteral calculous obstruction (principal); N28.9 Disorder of kidney and ureter, unspecified; Z87.442 Personal history of urinary calculi; R03.0 Elevated blood-pressure reading, without diagnosis of hypertension; F17.220 Nicotine dependence, chewing tobacco, uncomplicated

== ENCOUNTER → 2016-09-21 | Outpatient (CLI) | payer OTHER | END | disposition home or self-care (01) | LOC: C.LABSPEC 17:53 | PROVIDERS: ATTEND Urology | DX: N20.0 Calculus of kidney (principal) ==

== ENCOUNTER → 2016-09-23 | Day surgery (SDC) | payer OTHER ==
[2016-09-19 09:45] VITALS: Ht 182.9 cm; Wt 94.1 kg
--- NOTE | 2016-09-22 16:09 | DIAGNOSTIC IMAGING REPORT ---
CHEST 2 VIEWS ROUTINE CLINICAL HISTORY: N20.0 [id number] PREOPERATIVE CHEST COMPARISON STUDY: July 28, 2006 FINDINGS: The cardiac and mediastinal contours are normal. There is no evidence of focal pulmonary consolidation. There is no evidence of failure. No pleural effusions are visualized.[ There is a 6 mm opacity at the left lung base, likely representing a nipple shadow. IMPRESSION: 6 mm opacity at the left lung base statistically representing a nipple shadow. No evidence of failure. No evidence of focal pulmonary consolidation. Electronically signed by: Yassine Hernandez M.D. 09/22/2016 4:07 PM Dictated Date/Time: 09/22/2016 4:06 PM
--- NOTE | 2016-09-22 16:11 | DIAGNOSTIC IMAGING REPORT ---
KUB CLINICAL HISTORY: Nephrolithiasis. COMPARISON STUDY: CT of the abdomen and pelvis September 13, 2016 and KUB September 15, 2016 FINDINGS: A right ureteral stent is in place. There is a suspected 6 mm calculus within the right renal pelvis, adjacent to the proximal aspect of the stent. A bone island within the posterior right 11th rib is incidentally noted. IMPRESSION: Right ureteral stent in place. Suspected 6 mm right renal pelvis calculus. Electronically signed by: Navjot Miranda M.D. 09/22/2016 4:09 PM Dictated Date/Time: 09/22/2016 4:07 PM
[~2016-09-23] VITALS: Ht 182.9 cm; Wt 94.1 kg
[~2016-09-23] MED LIST changes: -ACET-1256 PO; +ATROPINE SULFATE 0.1 MG/ML 5ML SYR IV PRN; +CIPROFLOXACIN / D5W 400 MG IV SCH; +EpHEDrine SULFATE INJ 50 MG/ML AMP IV PRN; +EpHEDrine SULFATE INJ 50 MG/ML AMP ONE; +FENTANYL CITRATE INJ 50 MCG/1 ML 2 ML VIAL IV PRN; +FENTANYL CITRATE INJ 50 MCG/1 ML 2 ML VIAL ONE; +LACTATED RINGER'S 1000ML 1,000 ML IV SCH; +LIDOCAINE HCL 2% 2 ML VIAL (20MG/ML) ONE; +MIDAZOLAM HCL 1 MG/ML 2ML VIAL ONE; -ONDA4TAB10 SL; +ONDANSETRON INJ 2 MG/ML 2 ML VIAL IV PRN; +ONDANSETRON INJ 2 MG/ML 2 ML VIAL ONE; -OXYC-57 PO; +OXYCODONE/ACETAMINOPHEN 5-325 TAB PO PRN; +PROPOFOL IV EMULSION 10 MG/ML 20 ML VIAL IV ONE; +SODIUM CHLORIDE 0.9% 1000ML 1,000 ML IV SCH; +SODIUM CHLORIDE 0.9% INJ 10 ML VIAL ONE; -TAMS0.4C38 PO
--- NOTE | 2016-09-23 11:27 | History & Physical Bridge Note ---
H&P Re-Evaluation Bridge Note: I have examined the patient, reviewed the History & Physical and in the interval since the performance of the History & Physical I have noted the following changes of clinical significance: No changes noted
--- NOTE | 2016-09-23 12:00 | [facility] Post Operative Brief Note ---
Immediate Operative Summary Operative Date Sep 23, 2016. Pre-Operative Diagnosis Right renal stone Post-Operative Diagnosis right renal stone Procedure(s) Performed R ESWL Surgeon Ebenezer Rebollar MD Ordnance Keeper Surgeon(s) none Estimated Blood Loss 0cc Findings R renal stone adjacent to the stent. Had some PVCs with shocks, we ultimated synched the lithotriptor to the heart rate and he tolerated the remainder of the procedure very well. Specimens none Drains none Anesthesia gen Complication(s) None Disposition Recovery Room / PACU (stable)
--- NOTE | 2016-09-23 12:11 | Discharge Instructions-SurgCtr ---
Discharge Instructions Date of Service Sep 23, 2016. Visit Reason for Visit: Nephrolithiasis N20.0 Discharge Discharge Diagnosis / Problem: stones Discharge Goals Goal(s): Decrease discomfort, Improve function, Increase independence, Improve disease control Activity Recommendations Activity Limitations: resume your previous activity Lifting Limitations: none Exercise/Sports Limitations: none May Resume Sexual Activity: when tolerated Shower/Bathe: no limitations Driving or Machine Use: no limitations (as long as you are off of pain meds) Anesthesia . Post Anesthesia Instructions: If you have had General Anesthesia or IV Sedation: * Do not drive today. * Resume driving when surgeon permits. * Do not make important decisions or sign legal documents today. * Call surgeon for: 1. Temperature elevations greater than 101 degrees F. 2. Uncontrollable pain. 3. Excessive bleeding. 4. Persistent nausea and vomiting. 5. Medication intolerance (nausea, vomiting or rash). * For nausea and vomiting use only clear liquids such as: tea, soda, bouillon until nausea subsides, then gradually increase diet as tolerated. * If you have any concerns or questions, call your surgeon's office. If physician is unavailable and it is an emergency, call 911 or go to the nearest emergency room. . Diet Recommendations Home Diet: no limitations Procedures Procedures Performed: R ESWL Pending Studies Studies pending at discharge: no Medical Emergencies . Who to Call and When: Medical Emergencies: If at any time you feel your situation is an emergency, please call 911 immediately. . Non-Emergent Contact Non-Emergency issues call your: Urologist Call Non-Emergent contact if: you have a fever, temperature is above 101.5, your pain is not controlled, your pain is worsening, your pain is unusual for you . . "Provider Documentation" section prepared by Sandro Eason.
[2016-09-23 13:15] VITALS: TEMP 36.7
[2016-09-23 13:26] VITALS: BP 132/85; PULSE 60; O2SAT 100
--- NOTE | 2016-09-23 13:33 | OPERATIVE REPORT ---
DATE OF OPERATION: 09/23/2016 PREOPERATIVE DIAGNOSIS: Right renal calculus. POSTOPERATIVE DIAGNOSIS: Right renal calculus. PROCEDURE PERFORMED: Right extracorporeal shockwave lithotripsy. SURGEON: Dr. Rebollar. ANESTHESIA: General. ESTIMATED BLOOD LOSS: 0. URINE OUTPUT: Not recorded. SPECIMENS: None. DRAINS: None. COMPLICATIONS: There were no complications. DESCRIPTION OF THE PROCEDURE: Edis Xie was identified in the preoperative holding area. Appropriate informed consents reviewed and completed and the patient was transported to the operating suite. Upon arrival, he received appropriate preoperative antibiotics in the form of ciprofloxacin and general anesthesia. The stone was localized under fluoroscopy adjacent to a previously placed ureteral stent. Lithotripsy was commenced. Of note, he experience some PVCs with the lithotripsy and subsequently we gated the lithotripsy to his EKG and completed a total of 2500 shocks to the stone. Further details can be found on the [facility] Information Sheet. At the conclusion of the case, the patient was extubated and taken to the PACU in stable condition. I attest to the content of the Intraoperative Record and any orders documented therein. Any exceptio ns are noted below.
--- NOTE | 2016-09-23 13:35 | Anesthesia Progress Nt - [facility] ---
Anesthesia Post Op Note Date & Time Sep 23, 2016 at 13:34 Vital Signs Pain Intensity: 0 Vital Signs Past 12 Hours Date Time Temp Pulse Resp B/P Pulse Ox O2 Delivery O2 Flow Rate FiO2 09/23/16 13:26 60 16 132/85 100 Room Air 09/23/16 13:15 36.7 70 16 128/86 99 Room Air 09/23/16 13:01 63 15 98 09/23/16 13:01 64 15 09/23/16 13:00 37.5 97 Room Air 09/23/16 13:00 124/88 09/23/16 12:57 66 14 09/23/16 12:57 62 14 96 09/23/16 12:56 61 13 96 09/23/16 12:56 63 13 09/23/16 12:55 109/83 09/23/16 12:51 66 14 98 09/23/16 12:51 63 14 09/23/16 12:50 121/85 09/23/16 12:46 65 16 09/23/16 12:46 64 16 100 09/23/16 12:45 123/86 09/23/16 12:44 60 14 09/23/16 12:44 60 14 100 09/23/16 12:40 125/89 09/23/16 12:39 62 15 100 09/23/16 12:39 63 15 09/23/16 12:38 60 14 100 09/23/16 12:38 59 14 09/23/16 12:35 36.4 72 12 133/98 100 Mask 8 09/23/16 12:35 126/89 09/23/16 12:33 64 21 09/23/16 12:33 64 21 100 09/23/16 09:26 36.6 73 16 120/88 96 Room Air Notes Mental Status: alert / awake / arousable, participated in evaluation Pt Amnestic to Procedure: Yes Nausea / Vomiting: adequately controlled Pain: adequately controlled Airway Patency, RR, SpO2: stable & adequate BP & HR: stable & adequate Hydration State: stable & adequate Anesthetic Complications: no major complications apparent
== END | disposition home or self-care (01) ==
LOC: X.SURG 09:04
PROVIDERS: ATTEND Urology
DX: N20.0 Calculus of kidney (principal); Z87.442 Personal history of urinary calculi; Z84.1 Family history of disorders of kidney and ureter

== ENCOUNTER → 2016-10-03 | Outpatient (CLI) | payer OTHER ==
--- NOTE | 2016-10-03 16:36 | DIAGNOSTIC IMAGING REPORT ---
KUB CLINICAL HISTORY: Nephrolithiasis. FINDINGS: 2 AP supine abdominal radiographs are compared to study dated 09/22/2016 and correlated with abdominal CT dated 09/13/2016. A right ureteral stent is unchanged in position. A 3 mm calculus is again seen along the proximal aspect of the stent, located between the right second and third transverse processes. No additional calcifications are seen along the course of the stent. Small calcifications project over the lower pole of the right kidney. No left renal calculi are clearly seen. There is a nonobstructed abdominal bowel gas pattern noting colonic fecal retention. Mild lumbosacral spondylosis is observed. The lung bases are clear as imaged. A bone island is again noted in the right posterior 11th rib. IMPRESSION: 1. A right ureteral stent is unchanged in position. A 3 mm calcification projects along the proximal aspect of the stent as above. 2. Additional small calcifications project over the lower pole the right kidney. 3. No calcifications project over the left kidney. Electronically signed by: Otf Ramirez M.D. 10/03/2016 4:34 PM Dictated Date/Time: 10/03/2016 4:32 PM
== END | disposition home or self-care (01) ==
LOC: C.RAD 16:08
PROVIDERS: ATTEND Nurse Practitioner Adult Health
DX: N20.0 Calculus of kidney (principal); Z98.890 Other specified postprocedural states

== ENCOUNTER → 2016-12-22 | Outpatient (CLI) | payer OTHER ==
[2016-12-22 17:05] LABS: BLOOD UREA NITROGEN 22 mg/dl (7-18); BUN/CREATININE RATIO 22.9 (10-20); CREATININE 0.95 mg/dl (0.60-1.40)
== END | disposition home or self-care (01) ==
LOC: C.LAB 15:54
PROVIDERS: ATTEND Urology
DX: N20.0 Calculus of kidney (principal)

== ENCOUNTER → 2016-12-30 | Outpatient (CLI) | payer OTHER ==
[~2016-12-30] MED LIST changes: -ATROPINE SULFATE 0.1 MG/ML 5ML SYR IV PRN; -CIPROFLOXACIN / D5W 400 MG IV SCH; -EpHEDrine SULFATE INJ 50 MG/ML AMP IV PRN; -EpHEDrine SULFATE INJ 50 MG/ML AMP ONE; -FENTANYL CITRATE INJ 50 MCG/1 ML 2 ML VIAL IV PRN; -FENTANYL CITRATE INJ 50 MCG/1 ML 2 ML VIAL ONE; -LACTATED RINGER'S 1000ML 1,000 ML IV SCH; -LIDOCAINE HCL 2% 2 ML VIAL (20MG/ML) ONE; -MIDAZOLAM HCL 1 MG/ML 2ML VIAL ONE; -ONDANSETRON INJ 2 MG/ML 2 ML VIAL IV PRN; -ONDANSETRON INJ 2 MG/ML 2 ML VIAL ONE; +OPTIRAY 300 IV PRN; -OXYCODONE/ACETAMINOPHEN 5-325 TAB PO PRN; -PROPOFOL IV EMULSION 10 MG/ML 20 ML VIAL IV ONE; -SODIUM CHLORIDE 0.9% 1000ML 1,000 ML IV SCH; -SODIUM CHLORIDE 0.9% INJ 10 ML VIAL ONE
--- NOTE | 2016-12-30 14:29 | DIAGNOSTIC IMAGING REPORT ---
IV PYELOGRAM CLINICAL HISTORY: History of nephrolithiasis and prior right ureteral stent. COMPARISON STUDY: KUB 10/03/2016, CT abdomen 09/13/2016. TECHNIQUE: An abdominal crm specialist radiograph is performed. IVP pyelogram was then performed following the IV administration of 100 mL of Optiray 300, tomographic images are acquired in the corticomedullary and excretory phases of enhancement. Overhead views of the renal collecting system and bladder were obtained in multiple obliquities both pre and post void. FINDINGS: Fre[employer] Tallier radiograph demonstrates unchanged vascular calcifications of the left hemipelvis. No urolith is identified. There has been interval removal of the right sided ureteral stent. Previously noted small right ureteral calculus is no longer present. At 5 minutes, there is normal opacification of the bilateral renal collecting systems without focal filling defect. No ureteral dilation. Post void demonstrates mild residual contrast in the bilateral renal collecting systems. There is an unchanged sclerotic focus of the posterior right 11th rib suggesting bone island which is unchanged measuring 10 mm. Bowel gas pattern is nonobstructive. No fracture. IMPRESSION: 1. Interval removal of previously noted right-sided ureteral stent. 2. No definite renal or ureteral calculi are identified. No collecting system dilation. Electronically signed by: True Thorpe M.D. 12/30/2016 2:28 PM Dictated Date/Time: 12/30/2016 2:18 PM
== END | disposition home or self-care (01) ==
LOC: C.RAD 12:22
PROVIDERS: ATTEND Urology
DX: N20.0 Calculus of kidney (principal)

== ENCOUNTER → 2017-02-25 | Outpatient (CLI) | payer OTHER ==
[2017-02-25 14:18] LABS: ALT/SGPT 32 U/L (12-78); AST/SGOT 18 U/L (15-37); BLOOD UREA NITROGEN 13 mg/dl (7-18); BUN/CREATININE RATIO 14.6 (10-20); CALCIUM 8.2 mg/dl (8.5-10.1); CARBON DIOXIDE 27 mmol/L (21-32); CHLORIDE 110 mmol/L (98-107); CREATININE 0.89 mg/dl (0.60-1.40); GLUCOSE 97 mg/dl (70-99); POTASSIUM 4.4 mmol/L (3.5-5.1); SODIUM 142 mmol/L (136-145)
[2017-02-25 14:23] LABS: ALB/GLOB RATIO 1.3 (0.9-2); ALKALINE PHOSPHATASE 76 U/L (45-117); CHOLESTEROL 170 mg/dl (0-200); CHOLESTEROL/HDL RATIO 2.4; HDL CHOLESTEROL 70 mg/dl; LDL CHOLESTEROL CALCULATED 93 mg/dl; TRIGLYCERIDES 37 mg/dl (0-150); VERY LOW DENSITY LIPOPROT CALC 7 mg/dl
== END | disposition home or self-care (01) ==
LOC: C.LABBC 07:41
PROVIDERS: ATTEND Nurse Practitioner Family
DX: N20.0 Calculus of kidney (principal)